=== PATIENT | female | born 1975 | race Caucasian/White ===

== ENCOUNTER 2016-10-04 17:56 | Emergency (ER) | payer SELFPAY ==
[2016-10-04 18:47] VITALS: BP 123/77
--- NOTE | 2016-10-04 19:13 | UC ---
Skin Complaint HPI - HPI Summary HPI Summary: 41 y/o female w ~ 2 week h/o itchy skin on extremities. Patient states was walking [place] and afterwawrds developed a rash over lower arms and lower legs. Txd with topical/ oral benadryl and cortisone cream, however all symptoms returned. No family members with similar symptoms. H/O bed bugs montsh ago without recurrance. no new soaps/ detergents/ foods/ exposures. no fever, chills. 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 [employer] - significant other Hx Last Menstrual Period: 09/17/16 Onset/Duration: Sudden Onset, Lasting Weeks, Still Present Skin Exposure Onset/Duration: Weeks Ago Onset Severity: Moderate Current Severity: Moderate - Allergy/Home Medications Allergies/Adverse Reactions: Allergies Allergy/AdvReac Type Severity Reaction Status Date / Time No Known Allergies Allergy Verified 10/04/16 18:33 Review of Systems Skin: Rash Respiratory: Negative Cardiovascular: Negative Musculoskeletal: Negative All Other Systems Reviewed And Are Negative: Yes PMH/Surg Hx/FS Hx/Imm Hx Previously Healthy: Yes - Surgical History Surgical History: Yes Surgery Procedure, Year, and Place: x3, RIGHT shoulder surgery. - Family History Known Family History: Positive: Hypertension - Social History Alcohol Use: Rare Substance Use Type: None Smoking Status (MU): Never Smoked Tobacco - Immunization History Most Recent Influenza Vaccination: NONE 2015 Most Recent Tetanus Shot: UTD Physical Exam Triage Information Reviewed: Yes Appearance: Well-Appearing, No Pain Distress, Well-Nourished Vital Signs: Initial Vital Signs Temp 99.5 F 10/04/16 18:34 Pulse 88 10/04/16 18:34 Resp 18 10/04/16 18:34 BP 123/77 10/04/16 18:34 Pulse Ox 99 10/04/16 18:34 Musculoskeletal Exam: Normal Neurological Exam: Normal Skin: Positive: rashes, breakdown, Other - multiple erythematous areas with excoriations over center, raised, 2 areas of coalesced, erythematous, raised regions b/l inner calf approximately 4-5 cm, no drainage/ weeping noted, no burrowing, no lesions between fingers, in skin folds. follicular patter over upper arms. rad/ ulnar pulses 2+, cap refill <2sec b/l fingers. full ROM, strength grossly intact b/l LE and UEs Course/Dx - Course Course Of Treatment: dermatitis, likley contact. MEdrol dose pack given, continue PRN benadryl, return if no improvement of symptoms within 2-3 days or go to ER with SOB, worsensing symptoms - Differential Diagnoses - Skin Complaint Differential Diagnoses: Airway Obstruction, Allergic Reaction, Head Lice, Local Allergic Reaction, Lymphadenitis, Poison [place], Poison [place], Scabies, Urticaria - Diagnoses Provider Diagnoses: contact dermatitis Discharge - Discharge Plan Condition: Good Disposition: HOME Prescriptions: Methylprednisolone [Medrol Dosepak 4 MG*] 0 mg PO .SEE VASU INSTRUCTION #1 vasu Patient Education Materials: Contact Dermatitis (ED) Additional Instructions: - GO to ER with increased symptoms, shortness of breath, throat tighteness or swelling - Take medrol dose pack as directed - Continue benadryl as needed - ANtibacterial ointment over open wounds
== END 2016-10-04 19:23 | disposition home or self-care (01) ==
LOC: UCCORT 17:56
DX: L25.9 Unspecified contact dermatitis, unspecified cause (principal)
CPT/HCPCS: 99212; G0463

== ENCOUNTER 2017-08-14 11:49 | Emergency (ER) | payer BC ==
[2017-08-14 12:45] VITALS: BP 114/70
--- NOTE | 2017-08-14 13:02 | UC ---
Throat Pain/Nasal Felix HPI - HPI Summary HPI Summary: 42 y/o Obese female presents to the urgent care c/o sinus congestion and sinus pain w/ yellowish nasal discharge for the past 2 weeks. She has been taking Mucinex, Dayquill and other OTC medications w/o any improvement. For the past 3 days symptoms are worsening now w/ a dry cough , mild SOB and fatigue. Sinus pain is 5/10. Pt denies fever, chest pain, abdominal pain, urinary symptoms, dizziness, N/V/D. - History of Current Complaint Hx Obtained From: Patient Hx Last Menstrual Period: 08/13/17 ?: No Onset/Duration: Gradual Onset, Lasting Weeks - 2 weeks, Still Present, Worse Since - 3 days Severity: Moderate Pain Intensity: 5 - sinus pain Pain Scale Used: 0-10 Numeric Cough: Nonproductive - dry Associated Signs & Symptoms: Positive: Sinus Discomfort, Nasal Discharge - Epiglottits Risk Factors Epiglottis Risk Factors: Negative <Gabi Naqvi - Last Filed: 08/14/17 13:26> <Allen Coronado - Last Filed: 08/14/17 13:45> - History of Current Complaint Chief Complaint: UCGeneralIllness Stated Complaint: CONGESTED Time Seen by Provider: 08/14/17 12:59 - Allergies/Home Medications Allergies/Adverse Reactions: Allergies Allergy/AdvReac Type Severity Reaction Status Date / Time No Known Allergies Allergy Verified 08/14/17 12:36 Home Medications: Home Medications Phenylephrine/Dm/Acetaminop/GG [Mucinex Yyev-Mps-Cpgzyaqsmt Lq] 177 ml PO ONCE 08/14/17 [History Confirmed 08/14/17] PMH/Surg Hx/FS Hx/Imm Hx Previously Healthy: Yes Psychological History: Depression - Surgical History Surgical History: Yes Surgery Procedure, Year, and Place: x3, RIGHT shoulder surgery. - Family History Known Family History: Positive: Cardiac Disease, Hypertension, Diabetes - Social History Occupation: Employed Full-time Lives: With Family Alcohol Use: Rare Substance Use Type: None Smoking Status (MU): Never Smoked Tobacco - Immunization History Most Recent Influenza Vaccination: NONE 2016 Most Recent Tetanus Shot: UTD <Gabi Naqvi - Last Filed: 08/14/17 13:26> Review of Systems Constitutional: Negative Skin: Negative Eyes: Negative ENT: Ear Ache - B/L ear pressure, Nasal Discharge, Sinus Congestion, Sinus Pain/ Tenderness Respiratory: Cough - dry Cardiovascular: Negative Gastrointestinal: Negative Genitourinary: Negative Motor: Negative Neurovascular: Negative Musculoskeletal: Negative Neurological: Headache - mild Psychological: Negative Is Patient Immunocompromised?: No All Other Systems Reviewed And Are Negative: Yes <Gabi Naqvi - Last Filed: 08/14/17 13:26> Physical Exam - Summary Physical Exam Summary: Vitals: reviewed General: Well developed, well-nourished obese female patient with NAD. Head and face: Normocephalic and atraumatic, Positive tenderness over the frontal and maxillary sinuses.. Eyes: PERRLA, EOMI x 2. Normal conjunctiva. No eye discharge. ENT: Ears and TM with normal limits. Nose: edematous and erythematous nasal mucosa with with yellowish discharge and erythematous mucosa. Pharynx with erythema, no exudate. +PND yellowish Neck: Supple, no JVD, no carotid bruits and no lymphadenopathy. Lungs: clear, no rales, no rhonchi, no wheezes. CVS: RRR, S1 and S2 present no murmurs or gallops appreciated. Abdomen: soft nontender with positive bowel sounds. Extremities: no edema noted. Neuro: WNL. Skin: warm and dry Triage Information Reviewed: Yes Vital Signs: Initial Vital Signs Temp 98.1 F 08/14/17 12:37 Pulse 78 08/14/17 12:37 Resp 20 08/14/17 12:37 BP 114/70 08/14/17 12:37 Pulse Ox 98 08/14/17 12:37 <Gabi Naqvi - Last Filed: 08/14/17 13:26> Vital Signs: Initial Vital Signs Temp 98.1 F 08/14/17 12:37 Pulse 78 08/14/17 12:37 Resp 20 08/14/17 12:37 BP 114/70 08/14/17 12:37 Pulse Ox 98 08/14/17 12:37 <Allen Coronado - Last Filed: 08/14/17 13:45> Throat Pain/Nasal Course/Dx - Course Course Of Treatment: 42 y/o Obese female presents to the urgent care c/o sinus congestion and sinus pain w/ yellowish nasal discharge for the past 2 weeks. She has been taking Mucinex, Dayquill and other OTC medications w/o any improvement. For the past 3 days symptoms are worsening now w/ a dry cough , mild SOB and fatigue. Sinus pain is 5/10. Pt denies fever, chest pain, abdominal pain, urinary symptoms, dizziness, N/V/D.Hx obtained. Pt w/ acute bacterial sinusitis on examination. Pt with 2 weeks of symptoms getting worse. Pt Rx Augmentin PO and flonase nasal spray. Advised to continue taking Sudafed PO. Discharge instructions explained to Pt. Advised to Return to the clinic or PCP if symptoms do not improve.Pt understood and agreed with plan of care. - Differential Dx/Diagnosis Differential Diagnosis/HQI/PQRI: Laryngitis, Mononucleosis, Sinusitis, Tonsillitis, URI, Other - bronchitis, pneumonia Provider Diagnoses: 1- acute bacterial sinusitis <Gabi Naqvi - Last Filed: 08/14/17 13:26> Discharge - Sign-Out/Discharge Documenting (check all that apply): Discharge/Admit/Transfer - D/c home - Billing Disposition and Condition Condition: STABLE Disposition: Home <Gabi Naqvi - Last Filed: 08/14/17 13:26> - Billing Disposition and Condition Condition: STABLE Disposition: Home <Allen Coronado - Last Filed: 08/14/17 13:45> - Discharge Plan Condition: Stable Disposition: HOME Prescriptions: Amoxicillin/Clavulanate TAB* [Augmentin TAB 875*] 875 mg PO BID #20 tab Fluticasone NASAL SPRAY 50MCG* [Flonase NASAL SPRAY 50MCG*] 2 spray BOTH NARES DAILY #1 btl Patient Education Materials: Sinusitis (ED) Referrals: Wayne Tovar MD [Primary Care Provider] - 3 Days Additional Instructions: 1- Please increase fluid intake and rest. take full course of antibiotic to avoid resistance 2-Use Flonase as directed to help drain fluid. Also buy saline drops to clear sinuses 3-Continue taking Sudafed PO to alleviates sinus congestion 4-Return to the clinic or PCP 3 days if symptoms do not improve for further management and treatment Per institutional requirements, I have reviewed the chart, however, I was not consulted specifically or made aware of this patient by the midlevel provider. I did not personally evaluate, interact with , or disposition this patient.
== END 2017-08-14 13:31 | disposition home or self-care (01) ==
LOC: UCEAST 11:49
DX: J34.9 Unspecified disorder of nose and nasal sinuses (principal); F32.9 Major depressive disorder, single episode, unspecified; Z82.49 Family history of ischemic heart disease and other diseases of the circulatory system; Z83.3 Family history of diabetes mellitus
CPT/HCPCS: 99212; G0463

== ENCOUNTER 2018-06-23 07:43 | Emergency (ER) | payer BC ==
--- NOTE | 2018-06-23 08:03 | UC ---
Throat Pain/Nasal Felix HPI - HPI Summary HPI Summary: 3 DAYS OF SINUS CONGESTINO AND PARIKH. TRIED/FAILED: DAY QUIL AND NSAIDS. NOTHING MAKES IT BETTER/WORSE. - History of Current Complaint Chief Complaint: UCGeneralIllness Stated Complaint: SINUS ISSUES Time Seen by Provider: 06/23/18 08:00 Hx Obtained From: Patient Hx Last Menstrual Period: 05/18/18 Pain Intensity: 8 Pain Scale Used: 0-10 Numeric - Epiglottits Risk Factors Epiglottis Risk Factors: Negative - Allergies/Home Medications Allergies/Adverse Reactions: Allergies Allergy/AdvReac Type Severity Reaction Status Date / Time No Known Allergies Allergy Verified 06/23/18 07:57 Home Medications: Home Medications Furosemide [Lasix] 20 mg PO DAILY WITH MEAL 06/23/18 [History Confirmed 06/23/18 ] PMH/Surg Hx/FS Hx/Imm Hx - Additional Past Medical History Additional PMH: LE SWELLING Endocrine History: Other - OBESITY - Surgical History Surgical History: Yes Surgery Procedure, Year, and Place: x3, RIGHT shoulder surgery. - Family History Known Family History: Positive: Cardiac Disease, Hypertension, Diabetes - Social History Alcohol Use: Rare Substance Use Type: None Smoking Status (MU): Never Smoked Tobacco - Immunization History Most Recent Influenza Vaccination: NONE 2015 Most Recent Tetanus Shot: UTD Review of Systems All Other Systems Reviewed And Are Negative: Yes Constitutional: Negative: Fever, Chills, Fatigue Skin: Negative: Rash ENT: Positive: Ear Ache, Sinus Congestion, Sinus Pain/Tenderness. Negative: Dental Pain, Nasal Discharge Respiratory: Positive: Negative Gastrointestinal: Negative: Vomiting, Diarrhea Neurological: Positive: Headache Physical Exam Triage Information Reviewed: Yes Appearance: Well-Appearing Vital Signs: Initial Vital Signs Temp 98.4 F 06/23/18 07:52 Pulse 83 06/23/18 07:52 Resp 18 06/23/18 07:52 BP 00/00 06/23/18 07:52 Pulse Ox 99 06/23/18 07:52 Vital Signs Reviewed: Yes Eyes: Positive: Conjunctiva Clear ENT: Positive: Pharynx normal, TMs normal, Uvula midline. Negative: Sinus tenderness Neck: Positive: Supple, Nontender, No Lymphadenopathy. Negative: Nuchal Rigidity Respiratory Exam: Normal Cardiovascular Exam: Normal Neurological: Positive: Alert Skin: Negative: Rashes Throat Pain/Nasal Course/Dx - Differential Dx/Diagnosis Differential Diagnosis/HQI/PQRI: Sinusitis, URI Provider Diagnosis: Viral sinusitis Discharge - Sign-Out/Discharge Documenting (check all that apply): Patient Departure All imaging exams completed and their final reports reviewed: No Studies - Discharge Plan Condition: Good Disposition: HOME Patient Education Materials: Sinusitis (ED) Referrals: Wayne Tovar MD [Primary Care Provider] - Additional Instructions: Please follow up with your primary care provider if worsening. - Billing Disposition and Condition Condition: GOOD Disposition: Home
[2018-06-23 08:10] VITALS: BP 120/60
== END 2018-06-23 08:26 | disposition home or self-care (01) ==
LOC: UCEAST 07:43
DX: J01.80 Other acute sinusitis (principal)
CPT/HCPCS: 99211; G0463